=== PATIENT | female | born 1940 | race Caucasian/White ===

== ENCOUNTER 2019-03-26 18:22 | Inpatient (IN) | payer MEDICARE, BC ==
[~2019-03-26] VITALS: Ht 149.9 cm; Wt 47.8 kg
[2019-03-26] MEDS ORDERED: LIPITOR20 MG PO (18:30)
[2019-03-26] MEDS ORDERED: ALENDRONATE SOD40 MG PO (18:30)
[2019-03-26] MEDS ORDERED: CARDIZEM60 MG PO (18:31)
[2019-03-26] MEDS ORDERED: CALCITRATE (18:31)
[2019-03-26] MEDS ORDERED: CATAPRES0.1 MG PO (18:31)
[2019-03-26] MEDS ORDERED: COLACE100 MG PO (18:32)
[2019-03-26] MEDS ORDERED: METOPROLOL TART50 MG PO (18:32)
[2019-03-26] MEDS ORDERED: MOBIC7.5 MG PO (18:32)
[2019-03-26] MEDS ORDERED: FISH OIL 1200 (18:32)
[2019-03-26] MEDS ORDERED: ATIVAN0.5 MG PO (18:32)
[2019-03-26] MEDS ORDERED: HEALTHYLAX17 GM (18:33)
[2019-03-26] MEDS ORDERED: EXELON1 PATCH .2 TRANSDERM (18:33)
[2019-03-26] MEDS ORDERED: K-DUR20 MEQ PO (18:33)
[2019-03-26] MEDS ORDERED: PROTONIX40 MG PO (18:33)
[2019-03-26] MEDS ORDERED: ZOLOFT50 MG PO (18:34)
[2019-03-26] MEDS ORDERED: [UNRECOGNIZED DRUG - OTHER] (18:34)
[2019-03-26] MEDS ORDERED: ULTRAM50 MG PO (18:35)
[2019-03-26] MEDS ORDERED: VITAMIN B-12500 MCG (18:35)
[2019-03-26] MEDS ORDERED: VITAMIN D31000 UNIT PO (18:35)
[2019-03-26 19:03] LABS: BASOPHILS 0.4 % (0-2); EOSINOPHILS 3.1 % (0-7); HEMATOCRIT 39.8 % (36.0-48.0); HEMOGLOBIN 12.8 g/dL (12-16); IMMATURE GRANULOCYTES 1.1 % (0-5); LYMPHOCYTES 15.6 % (15-50); MCH 29.1 pg (26.0-34.0); MCHC 32.2 g/dL (31.0-37.0); MCV 90.5 fL (80.0-100.0); MEAN PLATELET VOLUME 8.2 fL (7.4-10.4); MONOCYTES 11.8 % (2-11); PLATELET COUNT 231 10x3/uL (130-400); WBC 11.9 10x3/uL (4.8-10.8)
--- NOTE | 2019-03-26 19:05 | NUR ---
REPORT RECEIVED FROM JOHN CONNELL. DR. MARADIAGA IN TO SEE PATIENT.
[2019-03-26 19:13] LABS: ANION GAP 11.1 mmol/L (8-16); CALCIUM 8.9 mg/dL (8.5-10.1); CARBON DIOXIDE 29.2 mmol/L (21.0-32.0); CREATININE - SERUM 1.3 mg/dL (0.6-1.3); POTASSIUM - SERUM 4.3 mmol/L (3.5-5.1)
--- NOTE | 2019-03-26 19:13 | NUR ---
SNF NURSE IN TO ASSESS PATIENT.
[2019-03-26 19:27] LABS: BILIRUBIN - TOTAL 0.38 mg/dL (0.2-1.3); MAGNESIUM - SERUM 2.1 mg/dL (1.8-2.4); PROTEIN - SERUM 6.6 g/dL (6.4-8.2); THYROID STIMULATING HORMONE 2.27 uIU/mL (0.36-3.74)
--- NOTE | 2019-03-26 19:47 | NUR ---
DR PICKETT NOTIFIED AND ORDERED RECEIVED TO ADMIT PATIENT TO [facility]. NOTITIED CHARGE NURSE AND ATTENDING. SAFETY PLAN AND RESOURCE SHEET GIVEN TO PATIENT.
--- NOTE | 2019-03-26 19:53 | NUR ---
PT ACCEPTED TO [facility]- ROOM 1125.
[2019-03-26 20:00] VITALS: BP 131/60
[2019-03-26 20:11] LABS: APPEARANCE HAZY (CLEAR); BILIRUBIN NEGATIVE (NEGATIVE); COLOR STRAW (YELLOW); GLUCOSE NEGATIVE (NEGATIVE); KETONE NEGATIVE (NEGATIVE); NITRITE NEGATIVE (NEGATIVE); PROTEIN NEGATIVE (NEGATIVE); UROBILINOGEN NORMAL (NORMAL)
[2019-03-26 20:16] LABS: EPITHELIAL CELLS 0-5 /hpf (0-5); RED CELLS - URINE 0-5 /hpf (0-5); UDS - AMPHET NEGATIVE QUAL (NEGATIVE); UDS - BARB NEGATIVE QUAL (NEGATIVE); UDS - BENZO NEGATIVE QUAL (NEGATIVE); UDS - COCAINE NEGATIVE QUAL (NEGATIVE); UDS - OPIATE NEGATIVE QUAL (NEGATIVE); UDS - PCP NEGATIVE QUAL (NEGATIVE); UDS - THC NEGATIVE QUAL (NEGATIVE)
[2019-03-26 20:17] LABS: BACTERIA FEW /hpf (NEGATIVE)
--- NOTE | 2019-03-26 21:16 | NUR ---
PATIENT ARRIVED FROM OUR E.D. AT 2100, PATIENT MADE SUICIDAL STATEMENTS AT THE [facility], CODE WORD IS '[place]', CODE STATUS IS FULL CODE. PHYSICIAN AND FAMILY AWARE OF ADMIT. WILL CONTINUE TO MONITOR.
--- NOTE | 2019-03-26 23:37 | NUR ---
PATIENT BECAME VERY ANXIOUS WHEN HER JEWLRY WAS REMOVED FOR SAFETY, SCREAMING AND YELLING AT STAFF UNABLE TO REDIRECT, PRN ATIVAN 0.5 MG im AND HALDOL 2 MG IM GIVEN FOR ANXIETY AT 22:30.
[2019-03-27 01:16] VITALS: BP 131/60; BMI 18.6
[2019-03-27 07:31] LABS: CHOL - HDL RATIO 3.3 ratio (2.3-4.1); LDL-HDL RATIO 1.8 ratio (1.5-3.5)
[2019-03-27 11:30] VITALS: BP 155/79
--- NOTE | 2019-03-27 15:34 | NUR ---
VERY TELIDA.ORIENTED BUT CAN NOT TELL THIS NURSE WHERE SHE LIVES POST NURSE WRITING [facility] ON PAPER AND GIVEN TO HER.DOES KNOW IT IS PRETTY THERE AND SHE WANTS TO RETURN THERE.VOICED ANGER TOWARD HER DAUGHTER FOR MAKING HER MOVE FROM PREVIOUS HOME.THEN LATER SAYS IT WAS HER SISTER N LAW.IS COMPLIANT WITH STAFF AND MEDS.DENIES SAYING ANYTHING ABOUT HARMING SELF.WILL CONTINUE WITH CURRENT PLAN OF CARE,MONITOR FOR CHANGES AND SAFETY.
[2019-03-27 20:28] VITALS: BP 121/79
--- NOTE | 2019-03-28 00:13 | NUR ---
B)RECEIVED SITTING IN THE DAYROOM. CONFUSED AND DISORIENTED. INTRUSSIVE AND WILL WALK UP TO STAFF WHEN THEY ARE CARING FOR OTHER PATIENTS. PATIENT WAS SHOWN HER ROOM AND ARGUED THAT WAS NOT HER ROOM AND STARTED GOING INTO OTHERS PATIENT'S ROOM LOOKING FOR HER SUITCASE. EXPLAINED TO PATIENT SHE WAS BROUGHT TO THE HOSPITAL IN AN AMBULANCE AND DID NOT BRING A SUITCASE. PATIENT REFUSED TO LEAVE ANOTHER PATIENT'S ROOM AND BEGAN YELLING AND TRYING TO HIT STAFF. I)ADMINSTER MEDS AND MONITOR COMPLIANCE. REDIRECT FOR GOING IN OTHER ROOMS. R)MED COMPLIALNT. POOR REDIRECTION AND BECAME AGGRESSIVE REQUIRING A PRN OF HALDOL AND ATIVAN IM PER LEFT DORSOGLUREAL PER DOCTOR ORDERS. P)CONTINUE POC AND PROVIDE SAFE ENVIRONMENT.
[2019-03-28 09:56] VITALS: BP 174/83
[2019-03-28 10:14] VITALS: Ht 149.9 cm; Wt 47.8 kg
--- NOTE | 2019-03-28 11:30 | NUR ---
B) PATIENT IS ORIENTED TO NAME ONLY, CONFUSED AND DISORIENTED. SHE IS INTRUSSIVE AT TIMES, WALKING TO NURSE AND ASKING HOW TO GET OUT OF THIS PLACE. CALMER AND MORE COOPERATIVE TODAY.
--- NOTE | 2019-03-28 15:22 | PSY ---
PATIENT NAME:TONY ABDULLAHI MEDICAL RECORD: [id number] : 36 LOCATION:[facility] ADMISSION DATE: 03/26/19 ACCOUNT: [id number] PSYCHIATRIC EVALUATION DATE OF EVALUATION: 03/27/19 IDENTIFYING DATA: The patient is 78 years old and she is referred to us on a voluntary basis. CHIEF COMPLAINT: Suicidal statements. HISTORY OF PRESENT ILLNESS: The patient lives in the [facility]. The [facility] staff sent her to the Emergency Room because she was threatening to either hang herself or jump in the [place]. She was upset because it is [place] time and her daughter is not going to come and see her or at least that is what she says. Also, she says her earlier this year. She is denying that she wants to hurt herself, but what is more distressing is that she denies ever making these statements and insists that they were just made up by the [facility] staff, which is just not believable. She denies that she is depressed, but endorses a large number of neurovegetative depressive symptoms. She is only partially oriented and it is clear she has a very significant dementia. PAST MEDICAL HISTORY: Significant for osteoporosis, hyperlipidemia, hypertension, osteoarthritis, gastroesophageal reflux disease. PAST PSYCHIATRIC HISTORY: Significant for diagnosis of dementia, although I do not have details about how or who or when that diagnosis was made. FAMILY HISTORY: Unknown. ALLERGIES: CIPRO. CURRENT MEDICATIONS: Include Fosamax, Lipitor, Calcitrate, Catapres, Cardizem, Colace, Ativan, Mobic, Lopressor, Protonix, Exelon, Zoloft and multiple vitamins. 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 She says she has lived in the [place] for 60 years and although she has an accent. She is fluent in Lebanese. She says she has one daughter who lives somewhere in [place]. She does not remember where. She says her a few months ago, but she cannot tell me the date. She denies any history of substance abuse. MENTAL STATUS EXAMINATION: The patient is awake, alert and oriented to person and place only. She is very confused about the date and the circumstances that brought her here. Her mood is depressed. Her affect is constricted. Thought processes are disorganized and she has impairment of her memory, concentration, and abstraction abilities. She denies that she would seek to harm herself or others as well as psychotic symptoms. ASSETS: Stable living environment. LIABILITIES: Limited insight. DIAGNOSTIC IMPRESSION: AXIS I: Advanced neurocognitive disorder of the Alzheimer's type, major depressive episode, moderate severity without psychotic features. AXIS II: Deferred. AXIS III: Hypertension, osteoarthritis, osteoporosis and hyperlipidemia. AXIS IV: Moderate. AXIS V: Global assessment of functioning is 30. PLAN: At this time, the patient is admitted to the hospital for a comprehensive medical, psychological, and social evaluation. She will be treated with both mood stabilizing and memory enhancing medications. Her long-term prognosis is guarded. TRANSINT:[id number] Voice Confirmation ID: [id number] DOCUMENT ID: [id number] VALENTIN PICKETT MD at 1522 CC: [id number] DICTATION DATE: 03/27/19 0957 SCRAP WORKER: 03/27/19 1015 [facility] IN [place] [id number] [place] [address]
[2019-03-28 16:50] VITALS: BP 180/111
[2019-03-28 20:00] VITALS: BP 117/70
--- NOTE | 2019-03-28 21:09 | NUR ---
PATIENT IS VERY CONFUSED, SHE CAN MAKE HER NEEDS KNOWN, COMPLIANT WITH MEDS, USES WALKER TO AMBULATE. WILL FOLLOW PC
[2019-03-29 06:08] LABS: RAPID PLASMA REAGIN Non Reactive (Non Reactive)
[2019-03-29 08:02] VITALS: BP 180/80
--- NOTE | 2019-03-29 09:25 | NUR ---
PT SITTING IN CHAIR AT THIS TIME. NURSE ASSISTED PT WITH BLANKET TO HELP HER WARM UP. NO DISTRESS NOTED. PT IS ALERT, CONFUSED AND ORIENTED TO SELF ONLY. PT CAN MAKE NEEDS KNOWN AT TIMES. PT AMBULATES WITH WALKER. PT HAD A PIN IN HERE SHIFT NURSE REMOVED PIN. WILL CONT PLAN OF CARE.
--- NOTE | 2019-03-29 12:24 | NUR ---
STAFF OFFERED ON SEVERAL DIFFERENT ATTEMPTS TO GET PT TO EAT SOME OF LUNCH. PT REFUSED MHT AND 2X NURSES. PT DID ACCEPTED AND DRANK SOME OF AN ENSURE. WILL CONT TO ENCOURAGE PT TO EAT.
--- NOTE | 2019-03-29 14:14 | PN ---
PATIENT:TONY ABDULLAHI MEDICAL RECORD: [id number] LOCATION:[facility] ADMISSION DATE: 03/26/19 PROGRESS NOTE DATE OF SERVICE: 03/28/2019 SUBJECTIVE: The patient's case was discussed with staff. She has no new complaint. OBJECTIVE: The patient denies that she would seek to harm herself or others. She is clearly very confused and also quite agitated. She is telling me that her daughter is making up all sorts of things about her, but for reasons that are completely mysterious. She is receiving a scheduled dose of Ativan to help with her anxiety. We are going to start her on Aricept to help with her cognitive impairment. ASSESSMENT: 1. Dementia. 2. Major depression. PLAN: The patient will be started on Aricept. She will be maintained on other medicines. TRANSINT:[id number] Voice Confirmation ID: [id number] DOCUMENT ID: [id number] VALENTIN PICKETT MD at 1414 CC: [id number] DICTATION DATE: 03/28/19 1539 CREDIT COLLECTIONS SPECIALIST: 03/28/19 2357 ADM IN [place] [id number] [place] [address]
[2019-03-29 20:10] VITALS: BP 121/81
--- NOTE | 2019-03-29 21:31 | NUR ---
RECEIVED IN DAYROOM. SOCIALIZING WITH PEERS. CALM AND COOPERATIVE WITH CARE AND ASSESSMENT. NO AGGRESSIVE BEHAVIOR. DENIES THOUGHTS OF SELF HARM. REDIRECT AND REORIENT NEEDED. CONTINUES TO SOCIALIZE AT THIS TIME. CONTINUE PLAN OF CARE.
[2019-03-30 08:00] VITALS: BP 110/83
[2019-03-30 09:32] VITALS: BP 110/80
--- NOTE | 2019-03-30 09:33 | NUR ---
NURSE RECHECK PT BLOOD PRESSURE MANUAL: 110/80, P: 70.
--- NOTE | 2019-03-30 10:11 | NUR ---
The patient is awake and alert, she is confused and she does speak in Swiss mostly, she needs redirection to speak Frisian. She can ambulate, but she is unsteady, she uses a walker when reminded. Provide prescribed meds. The patient is compliant with meds. Continue POC.
--- NOTE | 2019-03-30 12:08 | NUR ---
Nutrition Follow up/Consult: Patient is experiencing poor po intake. 23% avg per 9 meals. Patient on Megace. Patient has a low BMI of 18.5. No BM in past 3 days. Diet: Regular- Ensure w/ meals PO intake 23% Wt: 104 lbs Allergies: Pineapple BM: none recorded since admit Sig Meds: Vit D, KCl, Miralax, MEGACE, colace Goals/Interventions: Encourage po intake Encourage high protein-calorie foods Continue ensure w/ meals Stable weight [facility] PO intake >/=65% for meals Will continue to monitor closely [facility] Clinical Dietitian following
--- NOTE | 2019-03-30 13:05 | PN ---
PATIENT:TONY ABDULLAHI MEDICAL RECORD: [id number] LOCATION:[facility] ADMISSION DATE: 03/26/19 PROGRESS NOTE DATE OF SERVICE: 03/29/2019 SUBJECTIVE: The patient's case was discussed with staff. She has no new complaint. OBJECTIVE: The patient is withdrawn, blunted, and angry. She has a number of delusional thought processes. ASSESSMENT: 1. Dementia. 2. Major depression. PLAN: The patient is going to be treated with Megace to assist with appetite stimulation. In addition to this, she will be maintained on antidepressant medication. She has limited insight about her situation. The daughter reports that she has lost from 130-104 pounds in the past 6 months. Apparently, she has had a long history of agitated and aggressive behavior. She has also made many threats throughout her adult life about killing herself. TRANSINT:[id number] Voice Confirmation ID: [id number] DOCUMENT ID: [id number] VALENTIN PICKETT MD at 1305 CC: [id number] DICTATION DATE: 03/29/19 1548 TRUCK DRIVING INSTRUCTOR: 03/30/19 0033 ADM IN [facility] [address] [place] [place] [id number]
--- NOTE | 2019-03-30 16:20 | NUR ---
PT DID RECIEVE A SHOWER THIS SHIFT.
[2019-03-30 17:44] VITALS: BP 123/90
--- NOTE | 2019-03-30 19:43 | NUR ---
RECEIVED IN DAYROOM. SITTING WITH PEERS AT HER SIDE. CALM AND COOPERATIVE WITH CARE AND ASSESSMENT. NO STATEMENTS OF SELF HARM MADE THIS EVENING. ENCOURAGE TO EXPRESS NEEDS. CONTINUES TO SIT CALMLY IN DAYROOM. CONTINUE PLAN OF CARE
[2019-03-30 20:24] VITALS: BP 110/62
[2019-03-31 08:17] VITALS: BP 99/81
--- NOTE | 2019-03-31 08:20 | NUR ---
PT IS AT DOORS ATTEMPTING TO LEAVE. EXIT SEEKING SAYING SHE HAS AN APPOINTMENT. STAFF ATTMEPTED TO REDIRECT PT. UNABLE TO REDIRECT. PT WENT TO HER ROOM AT THIS TIME WITH WALKER. STAFF ASSISTED FROM ROOM TO CHAIR FOR SAFETY. PT IS NOT SPEAKING T[place] TO STAFF. PT SLEPT 2.5 HOURS. NO BEHAVIOR REPORTED FROM PREVIOUS SHIFT. CHAIR ALARM IN PLACE AND ACTIVE. WILL CONT PLAN OF CARE.
--- NOTE | 2019-03-31 09:50 | NUR ---
PT REFUSED TO EAT BREAKFAST. PT REFUSED HER MEDICATION AND SPIT IT ON THE FLOOR. PT SPIT HER FOOD ON THE FLOOR. UNABLE TO REDIRECT. PT SPEAKING KUWAITI ONLY.
--- NOTE | 2019-03-31 12:58 | NUR ---
PT SPEAKING TO STAFF IN [place]. UNABLE TO REDIRECT PT WITH LANGUAGE. NURSE USED TO GOOGLE TRANSLATE TO REORIENT PT TO [place]. ATTEMPT SUCCESSFUL. NURSE ATTEMPTED TO ASSISTED PT INTO A STANDING POSITION. PT BEGIN TO HIT AT NURSE AND ATTEMPTED TO DIG HER NAILS INTO NURSE ARM. ATTEMPTED TO REDIRECT BEHAVIOR. UNABLE TO REDIRECT. ATIVAN 0.5 MG IM ADMINISTERD PER DR. PICKETT ORDER. CHAIR ALARM IN PLACE AND ACTIVE. WILL CONT TO MONITOR FOR AGGRESSION.
--- NOTE | 2019-03-31 13:58 | NUR ---
PT IS CALM AND COOPERATIVE AT THIS TIME. PRN EFFECTIVE. WILL CONT TO MONITOR FRO S/SX OF MEDICAITION.
--- NOTE | 2019-03-31 19:08 | NUR ---
RECEIVED IN DAYROOM. CONTINUOUSLY ATTEMPTING TO GET UP WITHOUT ASSISTANCE. ATTEMPTING TO TAKE OFF CLOTHES IN DAYROOM. UNCOOPERATIVE. REDIRECT AND REORIENT NEEDED. CONTINUES ATTEMPTING TO GET UP WITHOUT ASSISTANCE. CONTINUE PLAN OF CARE.
[2019-04-01 10:23] VITALS: BP 152/78
--- NOTE | 2019-04-01 13:35 | NUR ---
PT IS AWAKE AND ALERT TO SELF ONLY. SHE IS CONFUSED AND DOES SPEAK IN NORTHERN IRISH MOSTLY, SHE NEEDS REDIRECTION TO SPEAK MOZAMBICAN. PT IS VERY UNSTEADY, HIGH FALL RISK. CALM AND COOPERATIVE WITH ASSESSMENT. PRESCRIBED MEDS PROVIDED ORDERED. MED COMPLAINT, MEDS CRUSHED. WILL CPOC.
--- NOTE | 2019-04-01 13:49 | PN ---
PATIENT:TONY ABDULLAHI MEDICAL RECORD: [id number] LOCATION:[facility] ADMISSION DATE: 03/26/19 PROGRESS NOTE DATE OF SERVICE: 03/31/2019 SUBJECTIVE: The patient's case was discussed with staff. She has no new complaint. OBJECTIVE: The patient is in good behavioral control. She has limited insight about her situation. She is easily agitated. ASSESSMENT: 1. Dementia. 2. Major depression. PLAN: The patient is going to be treated with scheduled dose of Klonopin. This will help relieve some of her anxiety and agitation I hope. In addition to this, I am going to discontinue the current patch and start her on Namenda. Her long-term prognosis is guarded. TRANSINT:[id number] Voice Confirmation ID: [id number] DOCUMENT ID: [id number] VALENTIN PICKETT MD at 1349 CC: [id number] DICTATION DATE: 03/31/19 1232 VAT OVERHAULER: 03/31/19 1319 ADM IN [place] [id number] [place] [id number]
--- NOTE | 2019-04-01 13:49 | PN ---
PATIENT:TONY BADULLAHI MEDICAL RECORD: [id number] LOCATION:[facility] ADMISSION DATE: 03/26/19 PROGRESS NOTE DATE OF SERVICE: 03/30/2019 SUBJECTIVE: The patient's case was discussed with staff. She has no new complaint. OBJECTIVE: The patient denies intent to harm herself or others. She is tolerating her medicines well. ASSESSMENT: 1. Dementia. 2. Major depression. PLAN: Current medicines have been reviewed and will be maintained. Long-term prognosis is guarded. TRANSINT:[id number] Voice Confirmation ID: [id number] DOCUMENT ID: [id number] VALENTIN PICKETT MD at 1349 CC: [id number] DICTATION DATE: 03/30/19 1401 BUREAU CHIEF: 03/30/19 1446 ADM IN [place] [id number] [place] [address]
--- NOTE | 2019-04-01 15:07 | NUR ---
B/P 130/72
--- NOTE | 2019-04-01 16:05 | NUR ---
Nutrition Follow-up: Chart reviewed. Noted pt still spitting/refusing foods. Awaiting swallow eval. Diet: Regular + Ensure with meals PO intake: ~25% average x last 9 meals Last BM: 03/30/19. WT: 102# (03/31/19); Admit wt: 104.8# (03/27/19) Meds noted: Megace (started on 03/29/19). No new labs. Recommend continue current diet and appetite stimulant as medically feasible. PO diet per PAINTER FOREMAN recommendations. RD is available for nutrition support recommendation if medically indicated/desired. RD will continue to follow.
[2019-04-01 20:31] VITALS: BP 119/62
--- NOTE | 2019-04-01 20:56 | NUR ---
RECEIVED IN DAYROOM. SITTING IN A RECLING CHAIR WITH PEERS AT HER SIDE. NO STATEMENTS OF SELF HARM MADE THIS EVENING. CALM AND COOPERATIVE WITH CARE AND ASSESSMENT. ENCOURAGE TO EXPRESS NEEDS. RESTING IN BED WITH EYES CLOSED AT THIS TIME. CONTINUE PLAN OF CARE
[2019-04-02 10:10] VITALS: BP 141/67
--- NOTE | 2019-04-02 11:48 | NUR ---
The patient is more awake today, but she speaks Indonesian more than Swedish. She believes that another female patient is her daughter. She is not making any suicidal statements and she has not been aggressive today. She is unsteady in gait and has fallen before coming to [facility]. Currently she is in a gerichair d/t her unsteady gait and her inability to use a walker appropriately. She picks it up and walks which makes her more unsteady. Provide prescribed meds. The patient is compliant with meds. Continue POC.
--- NOTE | 2019-04-02 15:10 | PN ---
PATIENT:TONY ABDULLAHI MEDICAL RECORD: [id number] LOCATION:[facility] ADMISSION DATE: 03/26/19 PROGRESS NOTE DATE OF SERVICE: 04/01/2019 SUBJECTIVE: The patient's case was discussed with staff. She has no new complaint. OBJECTIVE: The patient is depressed and withdrawn, but she has not been significantly agitated today. I do have reports of her having paranoid, delusional thoughts, but she does not display any to me this afternoon. ASSESSMENT: 1. Dementia. 2. Major depression. PLAN: The patient's Lexapro was going to be increased to 20 mg daily. I am going to reduce the dose of her Risperdal and Xanax secondary to some concerns about accumulation and sedation. TRANSINT:[id number] Voice Confirmation ID: [id number] DOCUMENT ID: [id number] VALENTIN PICKETT MD at 1510 CC: [id number] DICTATION DATE: 04/01/19 1538 PRINTING SCREEN ASSEMBLER: 04/01/19 2251 ADM IN [place] [id number] [place] [address]
[2019-04-02 22:07] VITALS: BP 150/70
--- NOTE | 2019-04-03 02:05 | NUR ---
B) Patient is alert and oriented to person, confused and difficult to redirect at times. I) Administered scheduled medications as ordered, monitored for safety R) mediation compliant, will not stay in bed or her room, but sleeps soundly in mazin chair in hallway right outside her door P) Continue plan of care.
[2019-04-03 09:25] VITALS: BP 108/53
--- NOTE | 2019-04-03 09:41 | PN ---
PATIENT:TONY ABDULLAHI MEDICAL RECORD: [id number] LOCATION:[facility] ADMISSION DATE: 03/26/19 PROGRESS NOTE DATE OF SERVICE: 04/02/2019 SUBJECTIVE: The patient's case was discussed with staff. She has no new complaint. OBJECTIVE: The patient was asleep, but easily arousable. She has limited insight about her situation. ASSESSMENT: 1. Major depression. 2. Dementia. PLAN: The patient's Klonopin is going to be discontinued secondary to a concern that it has accumulated and is causing some sedation. She will be monitored for clinical changes. TRANSINT:[id number] Voice Confirmation ID: [id number] DOCUMENT ID: [id number] VALENTIN PICKETT MD at 0941 CC: [id number] DICTATION DATE: 04/02/19 1545 HOME SALES CONSULTANT: 04/03/19 0107 ADM IN [place] [id number]
[2019-04-03 10:05] VITALS: BP 108/53
--- NOTE | 2019-04-03 11:51 | NUR ---
PT IS VERY SLEEPY THIS MORNING. PT RESPONDS TO VERBAL STIMULI. ALERT TO SELF ONLY. CALM AND COOPERATIVE WITH ASSESSMENT. PRESCRIBED MEDS PROVIDED ORDERED. MED COMPLIANT, MEDS CRUSHED. PT DOES SPEAK BURUNDIAN MORE THAN ITALIAN, HARD TO UNDERSTAND. REDIRECT AND REORIENT NEEDED. NO BEHAVIORS NOTED AT THSI TIME. NO SI NOTED OR VOICED. PT IS VERY UNSTEADY AT THIS TIME. WILL CPOC.
--- NOTE | 2019-04-03 19:20 | NUR ---
RECEIVED IN DAYROOM. SITTING IN A RECLINING CHAIR WITH PEERS AT HER SIDE. CALM AND COOPERATIVE WITH CARE AND ASSESSMENT. NO STATEMENTS OF SELF HARM MADE THIS EVENING. CALM AND COOPERATIVE WITH CARE AND ASSESSMENT. ENCOURAGE TO EXPRESS NEEDS. RESTING IN A WHEELCHAIR OUTSIDE OF NURSES STATION. YELLING OUT AT TIMES. CONTINUE PLAN OF CARE
[2019-04-03 20:29] VITALS: BP 150/59
[2019-04-04 09:50] VITALS: BP 162/68
--- NOTE | 2019-04-04 13:59 | NUR ---
The patient is awake and pleasant she is calm and she is interacting with staff and making jokes. She also speaks a lot with another female patient. She is in a w/c and she can self propel, she is too unsteady. She has not mentioned any suicidal ideations. Provide prescribed meds. The patient is compliant with meds. Continue POC.
--- NOTE | 2019-04-04 14:21 | PN ---
PATIENT:TONY ABDULLAHI MEDICAL RECORD: [id number] LOCATION:[facility] ADMISSION DATE: 03/26/19 PROGRESS NOTE DATE OF SERVICE: 04/03/2019 SUBJECTIVE: The patient's case was discussed with staff. She has no new complaint. OBJECTIVE: The patient continues to look somewhat sedated. She is arousable, but minimally interactive. ASSESSMENT: 1. Dementia. 2. Major depression. PLAN: Current medicines have been reviewed and will be maintained. Her long-term prognosis is guarded. TRANSINT:[id number] Voice Confirmation ID: [id number] DOCUMENT ID: [id number] VALENTIN PICKETT MD at 1421 CC: [id number] DICTATION DATE: 04/03/19 1018 ACQUISITION LEAD: 04/03/19 1252 ADM IN [place] [id number] [place] [address]
--- NOTE | 2019-04-04 16:01 | NUR ---
Nutrition Follow-up: Diet: Regular + Ensure with meals PO intake: ~28% average x last 9 meals. Eating more per MD notes. Last BM: 03/30/19. WT: 102# (03/31/19); Admit wt: 104.8# (03/27/19) Meds noted: megace. No new labs. Continue current nutrition regimen and appetite stimulant. Encourage PO intake. RD following.
--- NOTE | 2019-04-04 19:30 | NUR ---
RECEIVED SITTING IN THE DAYROOM LAUGHING AT A PEER FOR YELLING. ORIENTED TO SELF ONLY. ONCE BROUGHT UP TO THE NURSE'S STATION PATIENT KEPT TRYING TO GET OUT OF CHAIR AND REQUIRES STAND BY ASSIST. BROUGHT IN THE NURSES STATION AND PATIENT STARTED CURSING STAFF, PULLING CHARTS OUT OF CHART RACK, GRABBING HOLD OF THE NURSE'S WRIST AND BADGE. ADMINISTER MEDS AND MONITOR COMPLIANCE. REORIENT NEEDED. MED COMPLIANT. POOR REORIENTATION DUE TO IMPAIRED ABILITY TO PROCESS AND RETAIN INFORMATION. CONTINUE POC AND PROVIDE SAFE ENVIRONMENT.
--- NOTE | 2019-04-04 20:53 | NUR ---
PT WOULD NOT FOLLOW VERBAL REDIRECTION. PRN OF HALDOL AND ATIVAN IM ADMINISTERED BY Bisi HANSEN RN PER ORDERS.
[2019-04-05 00:28] VITALS: BP 110/56
[2019-04-05 09:04] VITALS: BP 127/74
--- NOTE | 2019-04-05 12:12 | NUR ---
The patient is drowsy this am, she awakens for meds and meals. She needs assist to transfer. She is not ambulating as she is too unsteady. The patient has not shown any aggression this am. Provide prescribed meds. The patient is compliant with meds. Continue POC.
--- NOTE | 2019-04-05 16:20 | PN ---
PATIENT:TONY ABDULLAHI MEDICAL RECORD: [id number] LOCATION:[facility] ADMISSION DATE: 03/26/19 PROGRESS NOTE DATE OF SERVICE: 04/04/2019 SUBJECTIVE: The patient's case was discussed with staff. She has no new complaint. OBJECTIVE: The patient is awake, alert and poorly oriented. She is cooperative. ASSESSMENT: 1. Major depression. 2. Dementia. PLAN: Current medicines have been reviewed and will be maintained. Long-term prognosis is guarded. TRANSINT:[id number] Voice Confirmation ID: [id number] DOCUMENT ID: [id number] VALENTIN PICKETT MD at 1620 CC: [id number] DICTATION DATE: 04/04/19 1601 LAY OUT INSPECTOR: 04/05/19 0257 ADM IN [place] [id number] [place] [address]
[2019-04-05 20:00] VITALS: BP 105/52
--- NOTE | 2019-04-05 23:43 | NUR ---
B) Patient is alert and oriented to self, very confused, calm and cooperative this shift I) Administered scheduled medications as ordered, assisted with needs R) Mediation compliant, resting in the hallway in mazin chair due her now staying in her room P) Continue plan of care.
[2019-04-06 09:09] VITALS: BP 119/58
--- NOTE | 2019-04-06 10:00 | NUR ---
B) PATIENT IS AWAKE AND ALERT, VERY CONFUSED, CALM AND COOPERATIVE WITH CARE AND ASESSMENT. I) ADMINISTERED SCHEDULED MEDICATION, ASSISTED WITH NEEDS. R) COMPLIANT WITH MEDICATIONS. NO BEHAVIORS NOTED. P) CONTINUE PLAN OF CARE.
--- NOTE | 2019-04-06 13:58 | PN ---
PATIENT:TONY ABDULLAHI MEDICAL RECORD: [id number] LOCATION:[facility] ADMISSION DATE: 03/26/19 PROGRESS NOTE DATE OF SERVICE: 04/05/2019 SUBJECTIVE: The patient's case was discussed with staff. She has no new complaint. OBJECTIVE: The patient received p.r.n. medication last night because of agitation. She is better today. I think that this may have been an isolated incident as there was some significant agitation from other patients that may have escalated her, but that is just a guess. I do not want to make significant changes in her medicine today because of my fear of over sedating her. ASSESSMENT: 1. Dementia. 2. Major depression. PLAN: Current medicines have been reviewed and will be maintained. Long-term prognosis is guarded. TRANSINT:[id number] Voice Confirmation ID: [id number] DOCUMENT ID: [id number] VALENTIN PICKETT MD at 1358 CC: [id number] DICTATION DATE: 04/05/19 1656 NEEDLE LOOM SETTER: 04/05/19 1834 ADM IN [facility] [address] [place] [address]
[2019-04-06 19:51] VITALS: BP 135/60
--- NOTE | 2019-04-06 20:41 | NUR ---
B.) PT IS ALERT AND ORIENTED TO SELF ONLY. SHE IS COFUSED AND IS OFTEN SEEN SPEAKING GREENLANDIC. SHE IS DOING BETTER WITH AMBULATING WITH ASSISTANCE IN THE DAY ROOM. I.) PROVIDED PM MEDICATIONS. REDIRECT OFTEN. R.) COMPLIANT WITH ALL MEDICATIONS. EASY TO REDIRECT. P.) WILL CONTINUE TO MONITOR.
--- NOTE | 2019-04-07 02:32 | NUR ---
PT ASKS THE NURSE TO TALK WITH HER. SHE RELATED SHE WANTED TO TALK TO THE POLICE. SHE IS TIRED OF ALL THIS AND WANTS TO GO HOME. EXPLAINED SHE IS IN THE HOSPITAL AND PATIENT RELATES SHE KNOWS AND RELATED TO NURSE IF SHE COULD SHE WOULD JUST KILL HERSELF.
[2019-04-07 08:00] VITALS: BP 103/56
--- NOTE | 2019-04-07 11:17 | PN ---
PATIENT:TONY ABDULLAHI MEDICAL RECORD: [id number] LOCATION:[facility] ADMISSION DATE: 03/26/19 PROGRESS NOTE DATE OF SERVICE: 04/06/2019 SUBJECTIVE: The patient's case was discussed with staff. She has no new complaint. OBJECTIVE: The patient is not eating adequately for reasons that are unclear. She is receiving Megace to assist with appetite stimulation. She is minimally interactive. ASSESSMENT: 1. Dementia. 2. Major depression. PLAN: Current medicines have been reviewed and will be maintained. Long-term prognosis is guarded. TRANSINT:[id number] Voice Confirmation ID: [id number] DOCUMENT ID: [id number] VALENTIN PICKETT MD at 1117 CC: [id number] DICTATION DATE: 04/06/19 1432 TEACHERS' AIDE: 04/06/19 1525 ADM IN [place] [id number] [place] [id number]
--- NOTE | 2019-04-07 13:35 | NUR ---
PATIENT REFUSING MEALS DESPITE REPEATED ENCOURAGEMENT.
--- NOTE | 2019-04-07 17:01 | NUR ---
CONFUSED AND DISORIENTED.COMPLIANT WITH STAFF AND MEDS.WILL CONTINUE WITH CURRENT PLAN OF CARE,MONITOR FOR CHANGES AND SAFETY.NO BEHAVIORS OBSERVED.
--- NOTE | 2019-04-07 18:23 | NUR ---
YELLING OUT.ARGUMENTIVE.THINKS THE CHAIR ALARM IS A TELEPHONE.ATTEMPTS TO CALM HER DOWN UNSUCCESSFUL.ATIVAN 0.5 MG PO GIVEN.
[2019-04-07 19:44] VITALS: BP 99/53
--- NOTE | 2019-04-07 21:07 | NUR ---
RECEIVED IN DAYROOM. SITTING IN A RECLINING CHAIR WITH A PEER AT HER SIDE. CALM AND COOPERATIVE WITH CARE AND ASSESSMENT. NO STATEMENTS OF SELF HARM MADE THIS EVENING. ENCOURAGE TO EXPRESS NEEDS. CONTINUES TO REST QUIETLY IN RECLINER. CONTINUE PLAN OF CARE
[2019-04-08 06:00] VITALS: BP 134/84
[2019-04-08 09:38] VITALS: BP 100/47
--- NOTE | 2019-04-08 11:00 | NUR ---
PATIENT WILL AROUSE, BUT SLEEPING UNTIL LUNCHTIME. CALM AND COOPERATIVE WITH CARE AND ASSESSMENT. COMPIANT WITH MEDICATIONS. NO BEHAVIORS NOTED. MONITOR FOR SAFETY AND CHANGES. WILL CONTINUE POC.
--- NOTE | 2019-04-08 14:00 | PN ---
PATIENT:TONY ABDULLAHI MEDICAL RECORD: [id number] LOCATION:[facility] ADMISSION DATE: 03/26/19 PROGRESS NOTE DATE OF SERVICE: 04/07/2019 SUBJECTIVE: The patient's case was discussed with staff. She has no new complaint. OBJECTIVE: The patient is very disorganized with almost no short-term memory. She has no thoughts of harming herself. Unfortunately, she is not eating very well, but she is receiving Megace. ASSESSMENT: 1. Dementia. 2. Major depression. PLAN: Current medicines have been reviewed and will be maintained. Long-term prognosis is guarded. TRANSINT:[id number] Voice Confirmation ID: [id number] DOCUMENT ID: [id number] VALENTIN PICKETT MD at 1400 CC: [id number] DICTATION DATE: 04/07/19 120 HAT DESIGNER: 04/07/19 1300 ADM IN [place] [id number] [place] [id number]
--- NOTE | 2019-04-08 14:22 | NUR ---
Nutrition Follow-up: Diet: Regular + Ensure with meals PO intake: ~17% average x last 9 meals Last BM: 04/07/19. WT: 100# (04/07/19); Admit wt: 104.8# (03/27/20) Meds noted: megace (started 03/29/19), miralax, colace. No new labs. Continue current diet and oral nutrition supplements. Continue megace as medically feasible, hopefully megace will start helping with appetite this week. Continue to encourage PO intake. RD following.
[2019-04-08 20:20] VITALS: BP 105/51
--- NOTE | 2019-04-08 21:27 | NUR ---
B.) PT IS ORIENTED TO SELF ONLY. SHE OFTEN SPEAKS PERSIAN AND IS DIFFICULT TO UNDERSTAND AT TIMES. SHE SEEMS TO HAVE HER DAYS AND NIGHTS CONFUSED SHE HAS SLEPT ALL DAY AND IS AWAKE AT NIGHT. SHE IS RECEIVED IN HER DALTON-CHAIR IN THE DAYROOM. SHE IS EASY TO AROUSE WITH CONVERSATION AND SHE IS PLEASANT WITH STAFF AND PEERS. I.) PROVIDED PM MEDICATIONS. REDIRECT OFTEN. R.) COMPLIANT WITH ALL MEDICATIONS. DIFFICULT TO REDIRECT. P.) WILL CONTINUE TO MONITOR.
[2019-04-08 22:44] LABS: ANION GAP 13.6 mmol/L (8-16); CALCIUM 8.7 mg/dL (8.5-10.1); CARBON DIOXIDE 23.8 mmol/L (21.0-32.0); CREATININE - SERUM 1.9 mg/dL (0.6-1.3); POTASSIUM - SERUM 4.4 mmol/L (3.5-5.1)
[2019-04-09 08:05] VITALS: BP 113/51
--- NOTE | 2019-04-09 12:00 | NUR ---
B) PATIENT IS ALERT AND ORIENTED TO SELF ONLY. SHE SPEAKS [place] AT TIMES. SHE IS SOCIALIZING WITH PEERS MOR TODAY. I) ADMINISTER PRESCRIBED MEDICATIONS. REDIRECT AND REORIENT NEEDED. R) COMPLIANT WITH MEDICATIONS. MONITOR FOR SAFETY AND CHANGES. P) CONTINUE PLAN OF CARE.
--- NOTE | 2019-04-09 12:35 | PN ---
PATIENT:TONY ABDULLAHI MEDICAL RECORD: [id number] LOCATION:[facility] ADMISSION DATE: 03/26/19 PROGRESS NOTE DATE OF SERVICE: 04/08/2019 SUBJECTIVE: The patient's case was discussed with staff. She has no new complaint. OBJECTIVE: The patient denies intent to harm herself or others. She is tolerating her medicines well. She has limited insight about her situation. ASSESSMENT: 1. Dementia. 2. Major depression. PLAN: Current medicines and therapies have been reviewed, both will be maintained. Her long-term prognosis is guarded. TRANSINT:[id number] Voice Confirmation ID: [id number] DOCUMENT ID: [id number] VALENTIN PICKETT MD at 1235 CC: [id number] DICTATION DATE: 04/08/19 1512 INTEGRATION ARCHITECT: 04/08/19 1829 ADM IN [facility] [address] [place] [id number]
--- NOTE | 2019-04-09 20:13 | NUR ---
RECEIVED IN DAYROOM. SITTING IN A RECLINER WITH PEERS AT HER SIDE. CALM AND COOPERATIVE WITH CARE AND ASSESSMENT. RESTLESS AT TIMES. REDIRECT AND REORIENT NEEDED. RESTING IN RECLINER AT THIS TIME. CONTINUE PLAN OF CARE
[2019-04-09 20:16] VITALS: BP 110/54
--- NOTE | 2019-04-10 08:00 | NUR ---
PT IS CONFUSED. AWAKE AND ALERT TO SELF ONLY. CALM AND COOPERATIVE WITH ASSESSMENT. PRESCRIBED MEDS PROVIDED ORDERED. MED COMPLIANT. REDIRECT AND REORIENT NEEDED. NO AGGRESSION NOTED. FALL PRECAUTIONS IN PLACE. WILL CPOC.
[2019-04-10 10:09] VITALS: BP 100/58
--- NOTE | 2019-04-10 15:38 | PN ---
PATIENT:TONY ABDULLAHI MEDICAL RECORD: [id number] LOCATION:[facility] ADMISSION DATE: 03/26/19 PROGRESS NOTE DATE OF SERVICE: 04/09/2019 SUBJECTIVE: The patient's case was discussed with staff. She has no new complaint. OBJECTIVE: The patient is disorganized, but not openly aggressive. She is difficult to redirect, but not in a way that is completely unmanageable. ASSESSMENT: 1. Dementia. 2. Major depression. PLAN: Current medicines and therapies have been reviewed, both will be maintained. Long-term prognosis is guarded. TRANSINT:[id number] Voice Confirmation ID: [id number] DOCUMENT ID: [id number] VALENTIN PICKETT MD at 1538 CC: [id number] DICTATION DATE: 04/09/19 1256 STOKER MECHANIC: 04/09/19 2242 ADM IN [place] [address] [place] [id number]
[2019-04-10 20:00] VITALS: BP 115/59
--- NOTE | 2019-04-10 23:51 | NUR ---
B.) PT IS ALERT AND ORIENTED TO SELF ONLY. SHE HAS POOR INSIGHT INTO HER SITUATION. SHE IS RECEIVED IN THE DAYROOM IN A DALTON-CHAIR. SHE IS PLEASANT WITH STAFF AND PEERS. SHE IS ABLE TO MAKE HER NEEDS KNOWN. I.) PROVIDE PM MEDICATIONS. REDIRECT NEEDED. R.) COMPLIANT WITH ALL MEDICATIONS. CAN BE DIFFICULT TO REDIRECT AT TIMES. P.) WILL CONTINUE TO MONITOR.
[2019-04-11 05:31] VITALS: BP 116/67
[2019-04-11 07:18] LABS: ANION GAP 12.3 mmol/L (8-16); CALCIUM 9.2 mg/dL (8.5-10.1); CARBON DIOXIDE 25.9 mmol/L (21.0-32.0); CREATININE - SERUM 1.2 mg/dL (0.6-1.3); POTASSIUM - SERUM 5.2 mmol/L (3.5-5.1)
[2019-04-11 09:17] VITALS: BP 136/45
--- NOTE | 2019-04-11 10:00 | NUR ---
PT SITTING IN CHAIR WITH EYES OPEN. PT IS VERY FRIENDLY WITH STAFF AND PEERS. PT IS ALERT AND ORIENTED TO SELF ONLY. PT IS CONFUSED AND TALKS TO SELF. PT AMBULATES BUT HE IS VERY UNSTEADY. STAFF ASSISTS WITH ADLS. PT IS COMPLIANT WITH STAFF, VITALS AND MEDS. PT IS FRIENDLY WITH STAFF AND PEERS. CHAIR ALARM IN PLACE AND ACTIVE. WILL CONT PLAN OF CARE.
--- NOTE | 2019-04-11 12:26 | NUR ---
NUTRITION F/U CHART REVIEWED. PT WITH ~ 30% INTAKE RECENT MEALS. WT UP SLIGHTLY AT 101 #. STARTED ON MEGACE. WILL CONTINUE TO MONITOR PO INTAKE AND WT. RD FOLLOWING
--- NOTE | 2019-04-11 15:12 | PN ---
PATIENT:TONY ABDULLAHI MEDICAL RECORD: [id number] LOCATION:[facility] ADMISSION DATE: 03/26/19 PROGRESS NOTE DATE OF SERVICE: 04/10/2019 SUBJECTIVE: The patient's case was discussed with staff. She has no new complaint. OBJECTIVE: The patient denies intent to harm herself or others. She is tolerating her medicines well. She is not eating adequately. ASSESSMENT: 1. Dementia. 2. Major depression. PLAN: At this time, the patient will be treated with higher dose of Namenda to assist with her disorganized thoughts. I am also going to increase the Megace. TRANSINT:[id number] Voice Confirmation ID: [id number] DOCUMENT ID: [id number] VALENTIN PICKETT MD at 1512 CC: [id number] DICTATION DATE: 04/10/19 1615 INCINERATOR PLANT GENERAL SUPERVISOR: 04/11/19 0205 ADM IN [place] [id number] [place] [address]
[2019-04-12 00:17] VITALS: BP 157/95
[2019-04-12 09:00] VITALS: BP 103/60
--- NOTE | 2019-04-12 11:37 | NUR ---
The patient is labile in affect and she is in a good mood, but confused she was mentioning her luggage and her cell phone this am. She had a sock on her hand and was waving it around. She ambulates with a walker, but she is unsteady and does not use the walker appropriately and meeds redirection on how to use it. Provide prescribed meds. The patient is compliant with meds. Continue POC.
--- NOTE | 2019-04-12 15:48 | PN ---
PATIENT:TONY ABDULLAHI MEDICAL RECORD: [id number] LOCATION:[facility] ADMISSION DATE: 03/26/19 PROGRESS NOTE DATE OF SERVICE: 04/11/2019 SUBJECTIVE: The patient's case was discussed with staff. She has no new complaint. OBJECTIVE: The patient is in good behavioral control. She has limited insight about her situation. She is tolerating her medicines reasonably well. ASSESSMENT: 1. Dementia. 2. Major depression. PLAN: Current medicines and therapies have been reviewed and will be maintained. Long-term prognosis is guarded. TRANSINT:[id number] Voice Confirmation ID: [id number] DOCUMENT ID: [id number] VALENTIN PICKETT MD at 1548 CC: [id number] DICTATION DATE: 04/11/19 170 COIN ROLLING MACHINE OPERATOR: 04/12/19 0306 ADM IN [place] [id number] [place] [address]
[2019-04-12 20:00] VITALS: BP 159/72
--- NOTE | 2019-04-12 20:03 | NUR ---
PATIENT IS PLEASANT MOST OF THE TIMES, SHE CAN GET MAD QUICKLY, SHE CAN MAKE HER NEEDS KNOWN, SHE GETS NERVOUS EASILY WELL, COMPLIANT WITH MEDS. NO ADVERSE REACTION NOTED. WILL FOLLOW POC
[2019-04-13 08:38] VITALS: BP 125/74
--- NOTE | 2019-04-13 11:12 | PN ---
PATIENT:TONY ABDULLAHI MEDICAL RECORD: [id number] LOCATION:[facility] ADMISSION DATE: 03/26/19 PROGRESS NOTE DATE OF SERVICE: 04/12/2019 SUBJECTIVE: The patient's case was discussed with staff. She has no new complaint. OBJECTIVE: The patient is tolerating her medicines well. She has limited insight about her situation, but certainly is not aggressive or disruptive in any significant way. She is appropriate for transitioning to an outpatient setting and I am told that all of the factors necessary for her to be discharged are in place and that she can return to the [facility] on Monday. That will be the plan unless there are some disruptive behavior problem over the weekend. TRANSINT:[id number] Voice Confirmation ID: [id number] DOCUMENT ID: [id number] VALENTIN PICKETT MD at 1112 CC: [id number] DICTATION DATE: 04/12/19 1644 THERMODYNAMICS TEACHER: 04/12/19 2350 ADM IN [place] [id number] [place] [address]
--- NOTE | 2019-04-13 11:14 | NUR ---
PT SITTING IN CHAIR WITH PEERS. NO DISTRESS NOTED. PT CAN MAKE NEEDS KNOWN. PT IS CONFUSED, ALERT TO SELF ONLY. PT AMBULATES WITH A WALKER. COMPLIANT WITH MEDS, VITALS AND ASSESSMENTS. ENCOURAGE PT TO DRINK WATER AND ENSURES. WILL CONT PLAN OF CARE.
--- NOTE | 2019-04-13 16:00 | NUR ---
The patient is getting anxious she is getting up from her chair and she is walking over to another female patient and she believes the other patient is her daughter, it is upsetting her that the other woman is not. She then believes she saw her daughter and that she is here. Explained to the patient that her daughter is not here. She gets upset with that statement. She gets upset if some one else tries to talk to the nurse if she is talking.
--- NOTE | 2019-04-13 17:13 | NUR ---
The patient continues to escalate in her anxiety about her daughter. She does not want staff to help her ambulate even though she is unsteady, she tells staff she feels she is being held in assisted because she can not walk across the floor alone. Staff try to explain that she is unsteady. This statement upsets her more. She is becoming more tense and anxious as evidenced by her body movements, her voice and her conversation that continues on about her daughter. Ativan 0.5 mg IM provided in her right hip. Will monitor.
[2019-04-13 20:32] VITALS: BP 102/60
--- NOTE | 2019-04-13 20:58 | NUR ---
PATIENT IS CONFUSED, GETS AGITATED EASILY WHEN REDIRECTED, COMPLIANT WITH MEDS. WILL MONITOR
[2019-04-14 10:04] VITALS: BP 159/81
--- NOTE | 2019-04-14 10:46 | NUR ---
PT SITTING IN CHAIR TALKING. PT CAN BE FRIENDLY. CAN NOT MAKE NEEDS KNOWN AT TIMES. PT IS ALERT CONFUSED AND ORIENTED TO SELF ONLY. PT IS COMPLIANT WITH MEDS, VITALS AND ASSESSMENTS. NO DISTRESS NOTED. PT IS UNSTEADY AT THIS TIME. PT IS IN W/C WITH CHAIR ALARM IN PLACE AND ACTIVE. REDIRECT AND REORIENT NEEDED. WILL CONT PLAN OF CARE.
--- NOTE | 2019-04-14 10:46 | PN ---
PATIENT:TONY ABDULLAHI MEDICAL RECORD: [id number] LOCATION:[facility] ADMISSION DATE: 03/26/19 PROGRESS NOTE DATE OF SERVICE: 04/13/2019 SUBJECTIVE: The patient's case was discussed with staff. She has no new complaint. OBJECTIVE: The patient denies intent to harm herself or others. She is eating reasonably well. She is tolerating her medicines reasonably well. ASSESSMENT: 1. Major depression. 2. Dementia. PLAN: Current medicines have been reviewed and will be maintained. Her long-term prognosis is guarded. TRANSINT:[id number] Voice Confirmation ID: [id number] DOCUMENT ID: [id number] VALENTIN PICKETT MD at 1046 CC: [id number] DICTATION DATE: 04/13/19 1218 ARMATURE AND ROTOR WINDER: 04/13/19 1502 ADM IN [place] [id number] [place] [id number]
[2019-04-14] MEDS ORDERED: CATAPRES0.1 MG PO (12:11)
[2019-04-14] MEDS ORDERED: DONEPEZIL HCL10 MG PO (12:11)
[2019-04-14] MEDS ORDERED: Megace ES [CHEMO] PO (12:12)
[2019-04-14] MEDS ORDERED: NAMENDA5 MG PO (12:12)
--- NOTE | 2019-04-14 19:14 | NUR ---
PT DAUGHTER CAME TO VISITATION THIS SHIFT. DAUGHTER WAS UPSET AND CRYING STATING THAT WAS NOT HER MOTHER. SHE IS A DIFFERENT PERSON THAN SHE WAS BEFORE SANDRA CARRERA. SHE THINKS MAYBE IT WAS DUE TO ALL THE FALLS SHE WAS HAVING AT THE [place]. SHE ASKED IF SHE HAD ANY MED CHANGES AND THE NURSE EXPLAINED THAT SHE DID. WHEN SHE CAME INTO THE UNIT SHE WAS VERY AGGRESSIVE WITH STAFF. DAUGHTER STATED THAT HOW SHE WAS. SHE WAS NOT USE TO HER BEING SO NICE. NURSE ALSO EXPLAINED THAT SHE WAS DISCHARGING BACK TO THE [facility] ON 04/15/2019. DAUGHTER DISCUSSED THAT SHE DID NOT LIKE THE IDEA OF HER GOING BACK THERE BUT [facility] DENIED HER THERE CAUSE SHE BURNED HER BRIDGES. NURSE ENCOURAGED HER TO SPEAK WITH [facility] ON MONDAY ABOUT PLACEMENT AND TIME FOR DISCHARGE. WILL REPLY MESSAGE.
--- NOTE | 2019-04-14 22:46 | NUR ---
PATIENT IS VERY CONFUSED STILL, NOT ARGUMENTATIVE IN THE PAST, COMPLIANT WITH MEDS. TRIES TO MAKE SOME NEEDS KNOWN, NOT SPEAKING [place] MUCH. WILL FOLLOW POC
[2019-04-15 02:06] VITALS: BP 154/76
[2019-04-15 07:31] VITALS: BP 178/70
--- NOTE | 2019-04-15 13:23 | PN ---
PATIENT:TONY ABDULLAHI MEDICAL RECORD: [id number] LOCATION:[facility] ADMISSION DATE: 03/26/19 PROGRESS NOTE DATE OF SERVICE: 04/14/2019 SUBJECTIVE: The patient's case was discussed with staff. She has no new complaint. OBJECTIVE: The patient is in good behavioral control, quite confused and disorganized, but certainly not showing any evidence of direct dangerousness. ASSESSMENT: 1. Dementia. 2. Major depression. PLAN: The patient will be transitioned out of the hospital tomorrow. She is going to return to the assisted living center. She will have additional or extra supervision or assistance provided over what is usually given there and she is in need of that extra supervision. TRANSINT:[id number] Voice Confirmation ID: [id number] DOCUMENT ID: [id number] VALENTIN PICKETT MD at 1323 CC: [id number] DICTATION DATE: 04/14/19 1210 TRUCKMAN: 04/15/19 0019 ADM IN [place] [id number] [place] [address]
--- NOTE | 2019-04-15 15:00 | NUR ---
PATIENT IS STILL CONFUSED, BUT SMILES MORE AND ARGUES LESS WITH STAFF. ADMINISTERED PRESCRIBED MEDICATION. CALM AND COOPERATIVE WITH STaff and ASSESSMENT. REDIRECT AND REORIENT NEEDED. CONTINUE PLAN OF CARE.
[2019-04-15 19:48] VITALS: BP 131/78
--- NOTE | 2019-04-16 00:08 | NUR ---
B.) PT IS ALERT AND ORIENTED TO SELF ONLY. SHE HAS POOR INSIGHT INTO HER SITUATION. SHE OFTEN SPEAKS OF HER AND IS INTRUSIVE WITH OTHERS CARE. SHE IS RECEIVED IN THE DAYROOM IN HER WHEEL CHAIR. I.) PROVIDED PM MEDICATIONS PRESCRIBED. REDIRECT OFTEN. R.) COMPLIANT WITH ALL MEDICATIONS AND DIFFICULT TO REDIRECT AT TIMES. P.) WILL CONTINUE TO MONITOR.
[2019-04-16 08:46] VITALS: BP 118/67
--- NOTE | 2019-04-16 11:18 | NUR ---
The patient is awake and alert this am she needs assist to ambulate as she is unsteady. She has poor insight into her situation. She is conversing with another patient. She interacts with staff in groups and activities, but she contines to say she saw her daughter this am. Provide prescribed meds. The patient is compliant with meds. Continue POC.
[2019-04-16 12:16] LABS: ANION GAP 13.2 mmol/L (8-16); CALCIUM 8.8 mg/dL (8.5-10.1); CARBON DIOXIDE 25.5 mmol/L (21.0-32.0); CREATININE - SERUM 1.3 mg/dL (0.6-1.3); POTASSIUM - SERUM 4.7 mmol/L (3.5-5.1)
--- NOTE | 2019-04-16 15:20 | PN ---
PATIENT:TONY ABDULLAHI MEDICAL RECORD: [id number] LOCATION:[facility] ADMISSION DATE: 03/26/19 PROGRESS NOTE DATE OF SERVICE: 04/15/2019 SUBJECTIVE: The patient's case was discussed with staff. She has no new complaint. OBJECTIVE: The patient is partially oriented. She has been in good behavioral control. She has not been aggressive or experienced any psychotic symptoms and certainly has no thoughts of wanting to hurt herself. ASSESSMENT: 1. Dementia. 2. Major depression. PLAN: The patient is ready for discharge and it is my understanding that those arrangements that were made for today are going to have to be postponed until tomorrow, which is acceptable. The circumstances for this are not clear to me, but she will be discharged tomorrow instead of today. TRANSINT:[id number] Voice Confirmation ID: [id number] DOCUMENT ID: [id number] VALENTIN PICKETT MD at 1520 CC: [id number] DICTATION DATE: 04/15/19 1643 WHEEL OF FORTUNE DEALER: 04/15/19 [address] [facility] [address] [place] [address]
--- NOTE | 2019-04-16 15:33 | NUR ---
Nutrition Follow-up: Diet: Regular + Ensure with meals PO intake: ~41% avreage x last 9 meals Last BM: 04/16/19. WT: 103# (04/14/19); Admit wt: 104.8# (03/27/19) Meds noted: megace, miralax, colace. Labs noted: BUN 46, GFR 42. Recommend continue current diet and oral nutrition supplement. Continue appetite stimulant as medically feasible. Encourage PO intake. RD following.
--- NOTE | 2019-04-16 22:23 | NUR ---
REC'D SITTING IN A WHEELCHAIR IN THE DAYROOM. CONFUSED AND DISORIENTED. ATTEMPTS TO INTERACT WITH PEERS AND STAFF BUT DOES NOT FOLLOW TOPIC OF CONVERSATION. FIXATED ON COMING TOMORROW. ADMINISTER MEDS AND MONITOR COMPLIANCE. REORIENT NEEDED. MED COMPLIANT. POOR REORIENTATION DUE TO IMPAIRED ABILITY TO PROCESS AND RETAIN INFORMATION. CONTINUE POC AND [id number] SAFE ENVIRONMENT.
[2019-04-16 22:44] VITALS: BP 120/63
--- NOTE | 2019-04-17 10:00 | NUR ---
PATIENT IS AWAKE AND ALERT, SMILES AND SOCIALIZES WITH PEERS. SHE HAS VERY POOR INSIGHT INTO HER SITUATION. NO AGGRESIVE BEHAVIOR NOTED. REDIRECT NEEDED. CONTINUE POC.
--- NOTE | 2019-04-17 11:34 | PN ---
PATIENT:TONY ABDULLAHI MEDICAL RECORD: [id number] LOCATION:[facility] ADMISSION DATE: 03/26/19 PROGRESS NOTE DATE OF SERVICE: 04/16/2019 SUBJECTIVE: The patient's case was discussed and her record was reviewed. OBJECTIVE: The patient is impaired cognitively, but not disorganized in any significant way. ASSESSMENT: 1. Dementia. 2. Major depression. PLAN: The patient may be discharged tomorrow. It looks as though all those arrangements are finally in place and I anticipate she can be transitioned to the long-term care facility tomorrow. TRANSINT:[id number] Voice Confirmation ID: [id number] DOCUMENT ID: [id number] VALENTIN PICKETT MD at 1134 CC: [id number] DICTATION DATE: 04/16/19 1531 RUGBY UNION FOOTBALLER: 04/16/19 2207 ADM IN [facility] [address] [place] [id number]
--- NOTE | 2019-04-17 11:45 | NUR ---
DISCHARGED TO THE [facility] VIA VAN. BELONGING COLLECTED AND GIVEN TO PATIENT.
--- NOTE | 2019-04-18 15:55 | PN ---
PATIENT:TONY ABDULLAHI MEDICAL RECORD: [id number] LOCATION:[facility]112 ADMISSION DATE: 03/26/19 PROGRESS NOTE DATE OF SERVICE: 04/17/2019 SUBJECTIVE: The patient's case was discussed with staff. She has no new complaint. OBJECTIVE: The patient is in good behavioral control. She has poor insight about her situation. ASSESSMENT: 1. Dementia. 2. Major depression. PLAN: The patient will be transitioned out of the hospital today. Her long-term prognosis is guarded. TRANSINT:[id number] Voice Confirmation ID: [id number] DOCUMENT ID: [id number] VALENTIN PICKETT MD at 1555 CC: [id number] DICTATION DATE: 04/17/19 1630 PHLEBOTOMIST: 04/18/19 0205 DIS IN 04/17/19 [facility] [address] [place] [address]
== END 2019-04-17 11:45 | disposition home or self-care (01) | DRG 884 ==
LOC: D.ER 18:22 → D.PSYCH 20:00
PROVIDERS: Family Medicine; ADMIT Psychiatry & Neurology Psychiatry; ATTEND Psychiatry & Neurology Psychiatry
DX: F01.51 Vascular dementia, unspecified severity, with behavioral disturbance (principal); F33.3 Major depressive disorder, recurrent, severe with psychotic symptoms; R45.851 Suicidal ideations; N39.0 Urinary tract infection, site not specified; I10 Essential (primary) hypertension; E78.5 Hyperlipidemia, unspecified; M19.90 Unspecified osteoarthritis, unspecified site; M81.0 Age-related osteoporosis without current pathological fracture; K21.9 Gastro-esophageal reflux disease without esophagitis; K59.00 Constipation, unspecified; E86.0 Dehydration; E87.5 Hyperkalemia